=== PATIENT | male | born 1935 | race Caucasian/White ===

== ENCOUNTER 2024-03-30 17:43 | Inpatient (IN) | payer OTHER, BC ==
[~2024-03-30] VITALS: Ht 182.9 cm; Wt 69.4 kg
[2024-03-30 19:00] LABS: BASOPHILS % (AUTO) 0.1 % (0-1); EOSINOPHILS % (AUTO) 0 % (0-6); HEMATOCRIT 43.9 % (42.0-52.0); LYMPHOCYTES # (AUTO) 4.8 X10'3 (1.1-4.8); LYMPHOCYTES % (AUTO) 39.9 % (21-51); MEAN CORPUSCULAR HEMOGLOBIN 33.4 PG (27.0-31.0); MEAN CORPUSCULAR VOLUME 104.6 FL (78-98); MEAN PLATELET VOLUME 9.2 FL (7.4-10.4); MONOCYTES # (AUTO) 0.4 X10'3 (0-0.9); MONOCYTES % (AUTO) 3.6 % (2-12); NEUTROPHILS # (AUTO) 6.7 X10'3 (1.8-7.7); NEUTROPHILS % (AUTO) 56.4 % (42-75); PLATELET COUNT 133 X10'3 (140-440); RED CELL DISTRIBUTION WIDTH 15.1 % (11.5-14.5); WHITE BLOOD COUNT 11.9 X10'3 (4.5-11.0)
[2024-03-30 19:22] LABS: ALBUMIN 3.2 G/DL (3.4-5.0); ANION GAP 5 (8-16); BLOOD UREA NITROGEN 22 MG/DL (7-18); BUN/CREATININE RATIO 20.4 (10.0-20.0); CALCIUM 8.3 MG/DL (8.5-10.1); CHLORIDE 103 MMOL/L (99-107); CREATININE 1.08 MG/DL (0.60-1.10); GLUCOSE 143 MG/DL (70-104); POTASSIUM 4.6 MMOL/L (3.5-5.1); PRO BRAIN NATRIURETIC PEPTIDE 3224 PG/ML (0-450); SODIUM 139 MMOL/L (135-145); TOTAL CARBON DIOXIDE 30.6 MMOL/L (24-32); eCRCL 54 ML/MIN; eGFR 65 ML/MIN
[2024-03-30 20:32] LABS: BILIRUBIN,URINE NEGATIVE (Neg); CLARITY,URINE CLEAR (Clear); COLOR,URINE YELLOW (Yellow); GLUCOSE, URINE NEGATIVE (Neg); KETONES,URINE NEGATIVE (Neg); LEUKOCYTE ESTERASE ,URINE NEGATIVE (Neg); NITRITES, URINE NEGATIVE (Neg); OCCULT BLOOD,URINE MODERATE (Neg); PH,URINE 5.5 (4.8-8.0); PROTEIN,URINE 30 mg/dl (Neg); UROBILINOGEN,URINE 0.2 E.U/dL (0.2-1.0)
[2024-03-30 20:37] LABS: UA COLLECTION TYPE STRAIGHT CATH
[2024-03-30 20:38] LABS: BACTERIA,URINE 2+ /HPF (Neg); SQUAMOUS EPITHELIAL CELL,UR FEW /LPF (FEW)
[2024-03-30 20:39] LABS: WBC,URINE 0-4 /HPF (0-4)
[2024-03-30] MEDS ORDERED: iohexol 300mg/ml 100ml inj. ONE (21:29)
[2024-03-30 21:38] LABS: ALANINE AMINOTRANSFERASE 22 U/L (12-78); ALBUMIN/GLOBULIN RATIO 0.7 (1.1-1.5); ALKALINE PHOSPHATASE 82 IU/L (46-116); ASPARTATE AMINO TRANSFERASE 22 U/L (10-37); BILIRUBIN,DIRECT 0.3 MG/DL (0-0.3); BILIRUBIN,TOTAL 1.2 MG/DL (0.1-1.0); TOTAL PROTEIN 7.6 G/DL (6.4-8.2)
[2024-03-30 21:45] LABS: C-REACTIVE PROTEIN 4.66 MG/DL (0.0-0.5); MAGNESIUM 2.3 MG/DL (1.5-2.4)
[2024-03-30] MEDS: haloperidol lactate 5mg/ml inj IM ONE (21:47)
[2024-03-30 21:50] LABS: URINE AMPHETAMINE SCREEN NEGATIVE (Neg); URINE BARBITUATE SCREEN NEGATIVE (Neg); URINE BENZODIAZEPINES SCREEN NEGATIVE (Neg); URINE CANNABINOID SCREEN POSITIVE (Neg); URINE COCAINE SCREEN NEGATIVE (Neg); URINE METHADONE SCREEN NEGATIVE (Neg); URINE OPIATE SCREEN NEGATIVE (Neg); URINE PHENCYCLIDINE SCREEN NEGATIVE (Neg)
[2024-03-30 22:01] LABS: ETHANOL < 10 MG/DL (<10)
[2024-03-30] MEDS: normal saline 1000ml 1,000 ML IV ONE (22:15)
[2024-03-30] MEDS: methylPREDNISolone sod succ 125mg/2ml vial IV ONE (22:18)
[2024-03-30 22:21] LABS: APTT 27 SECONDS (22-32); PROTHROMBIN TIME 10.3 SECONDS (9.0-12.0)
[2024-03-30 22:25] LABS: CREATINE KINASE 171 U/L (39-308)
[2024-03-30 22:35] LABS: ABG BASE EXCESS -0.9 mmol/L (-2.0-3.0); ABG HCO3 24.3 mmol/L (21.0-28.0); ABG OXYGEN SATURATION 97.7 % (94.0-98.0); ALLEN'S TEST POSITIVE; FHHb 2.3 % (0.0-5.0); FLOW 5 L/min; FMetHb 0.1 % (0.0-1.5); FO2Hb 96.6 % (94.0-98.0); MODE NASAL CANNULA; TOTAL HEMOGLOBIN 14.6 G/dl (13.5-17.5)
[2024-03-30] MEDS: ipratropium/albuterol 3ml nebule NEB ONE (23:10)
[2024-03-30 23:16] VITALS: PULSE 101; RESP 20; O2SAT 99
[2024-03-30] MEDS: hydrALAZINE 20mg/ml inj. IV ONE (23:22)
[2024-03-30] MEDS ORDERED: ipratropium/albuterol 3ml nebule NEB PRN (23:30)
[2024-03-30] MEDS ORDERED: acetaminophen 325mg tablet PO PRN (23:30)
[2024-03-30] MEDS ORDERED: potassium Cl 40MEQ/1/2NS 520ml 520 ML IV PRN (23:30)
[2024-03-30] MEDS ORDERED: ondansetron/PF 4mg/2ml inj IV PRN (23:30)
[2024-03-30] MEDS ORDERED: mag hydrox/Alum hydrox/simeth 30ml oral suspension PO PRN (23:30)
[2024-03-30] MEDS ORDERED: potassium Cl 20 mEq SR tablet PO PRN ×2 (23:30)
[2024-03-30] MEDS ORDERED: magnesium sulf-water 4G/100mL 100 ML IV PRN (23:30)
[2024-03-30] MEDS ORDERED: magnesium Cl slow-release 64mg tablet PO PRN (23:30)
[2024-03-30] MEDS ORDERED: magnesium sulf-water 2g/50mL 50 ML IV PRN (23:30)
[2024-03-30] MEDS ORDERED: magnesium hydroxide 30ml (MOM) UD suspension PO PRN (23:30)
[2024-03-30] MEDS: azithromycin/NS 500mg/250ml 250 ML IV SCH (23:35)
[2024-03-31] VITALS (7 sets, daily range): BP systolic 105–163; BP diastolic 55–101; PULSE 83–90; RESP 16–20; TEMP 97.3–98.1; O2SAT 93–98
[2024-03-31] MEDS ORDERED: hydrALAZINE 20mg/ml inj. IV PRN
[2024-03-31] MEDS: normal saline 1000ml 1,000 ML IV SCH (00:23)
[2024-03-31] MEDS: CefTRIAXone/D5W-Rocephin 1gm 50 ML IV ONE (00:23)
[2024-03-31] MEDS: folic acid 1mg tablet PO ONE (00:24)
[2024-03-31] MEDS: haloperidol lactate 5mg/ml inj IM ONE (00:35)
[2024-03-31 02:20] LABS: BASOPHILS % (AUTO) 0.1 % (0-1); EOSINOPHILS % (AUTO) 0 % (0-6); HEMOGLOBIN 13.5 g/dl (14.0-17.9); LYMPHOCYTES # (AUTO) 4.7 X10'3 (1.1-4.8); LYMPHOCYTES % (AUTO) 37.5 % (21-51); MEAN CORPUSCULAR HEMOGLOBIN 33.8 PG (27.0-31.0); MEAN CORPUSCULAR HGB CONC 32.1 g/dL (33.0-36.5); MEAN CORPUSCULAR VOLUME 105.1 FL (78-98); MEAN PLATELET VOLUME 9.6 FL (7.4-10.4); MONOCYTES # (AUTO) 0.1 X10'3 (0-0.9); NEUTROPHILS # (AUTO) 7.7 X10'3 (1.8-7.7); NEUTROPHILS % (AUTO) 61.4 % (42-75); PLATELET COUNT 132 X10'3 (140-440); RED BLOOD COUNT 3.99 X10'6 (4.70-6.10); RED CELL DISTRIBUTION WIDTH 15.1 % (11.5-14.5); WHITE BLOOD COUNT 12.6 X10'3 (4.5-11.0)
[2024-03-31 02:38] LABS: ALANINE AMINOTRANSFERASE 20 U/L (12-78); ALBUMIN/GLOBULIN RATIO 0.7 (1.1-1.5); ALKALINE PHOSPHATASE 75 IU/L (46-116); ANION GAP 9 (8-16); ASPARTATE AMINO TRANSFERASE 29 U/L (10-37); BILIRUBIN,TOTAL 1.4 MG/DL (0.1-1.0); BLOOD UREA NITROGEN 18 MG/DL (7-18); BUN/CREATININE RATIO 16.7 (10.0-20.0); CALCIUM 8.2 MG/DL (8.5-10.1); CHLORIDE 103 MMOL/L (99-107); CREATININE 1.08 MG/DL (0.60-1.10); GLUCOSE 186 MG/DL (70-104); POTASSIUM 4.5 MMOL/L (3.5-5.1); SODIUM 139 MMOL/L (135-145); TOTAL CARBON DIOXIDE 27.4 MMOL/L (24-32); TOTAL PROTEIN 7.2 G/DL (6.4-8.2); eCRCL 54 ML/MIN; eGFR 65 ML/MIN
[2024-03-31] MEDS ORDERED: UNABLE TO OBTAIN (02:40)
[2024-03-31] MEDS: ipratropium/albuterol 3ml nebule NEB SCH (08:00)
[2024-03-31] MEDS: budesonide 0.5mg/2ml UD nebule IH SCH (08:00)
[2024-03-31] MEDS: CefTRIAXone/D5W-Rocephin 1gm 50 ML IV SCH (08:04)
[2024-03-31] MEDS: losartan 25mg tablet PO SCH (08:13)
[2024-03-31] MEDS: methylPREDNISolone sod succ 125mg/2ml vial IV SCH (08:15)
[2024-03-31] MEDS: metoprolol succinate 25mg (24-HOUR) SR. Tablet PO SCH (08:16)
[2024-03-31] MEDS: amLODIPine 5mg tablet PO SCH (08:16)
[2024-03-31] MEDS: enoxaparin 40mg/0.4ml syringe SUBCUT SCH (08:21)
[2024-03-31] MEDS: atorvastatin 20mg tablet PO SCH (08:22)
[2024-03-31] MEDS: K and/or MAG REPLACEMENT MC SCH (08:31)
[2024-04-01 01:43] LABS: BASOPHILS % (AUTO) 0.1 % (0-1); EOSINOPHILS % (AUTO) 0 % (0-6); HEMATOCRIT 34.6 % (42.0-52.0); HEMOGLOBIN 11.3 g/dl (14.0-17.9); LYMPHOCYTES # (AUTO) 4.7 X10'3 (1.1-4.8); LYMPHOCYTES % (AUTO) 37.3 % (21-51); MEAN CORPUSCULAR HEMOGLOBIN 33.7 PG (27.0-31.0); MEAN CORPUSCULAR HGB CONC 32.7 g/dL (33.0-36.5); MEAN CORPUSCULAR VOLUME 102.9 FL (78-98); MEAN PLATELET VOLUME 9.5 FL (7.4-10.4); MONOCYTES # (AUTO) 0.3 X10'3 (0-0.9); NEUTROPHILS # (AUTO) 7.7 X10'3 (1.8-7.7); NEUTROPHILS % (AUTO) 60.6 % (42-75); PLATELET COUNT 112 X10'3 (140-440); RED BLOOD COUNT 3.36 X10'6 (4.70-6.10); WHITE BLOOD COUNT 12.7 X10'3 (4.5-11.0)
[2024-04-01 01:57] LABS: ALANINE AMINOTRANSFERASE 19 U/L (12-78); ALBUMIN 2.3 G/DL (3.4-5.0); ALBUMIN/GLOBULIN RATIO 0.7 (1.1-1.5); ALKALINE PHOSPHATASE 55 IU/L (46-116); ANION GAP 9 (8-16); ASPARTATE AMINO TRANSFERASE 27 U/L (10-37); BILIRUBIN,TOTAL 0.7 MG/DL (0.1-1.0); BLOOD UREA NITROGEN 19 MG/DL (7-18); BUN/CREATININE RATIO 23.5 (10.0-20.0); CALCIUM 6.5 MG/DL (8.5-10.1); CHLORIDE 108 MMOL/L (99-107); CREATININE 0.81 MG/DL (0.60-1.10); GLUCOSE 166 MG/DL (70-104); POTASSIUM 3.8 MMOL/L (3.5-5.1); SODIUM 141 MMOL/L (135-145); TOTAL CARBON DIOXIDE 24.5 MMOL/L (24-32); TOTAL PROTEIN 5.5 G/DL (6.4-8.2); eCRCL 64 ML/MIN; eGFR 90 ML/MIN
[2024-04-01 11:30] VITALS: BP 164/91; PULSE 89; RESP 18; O2SAT 94
[2024-04-01 12:55] VITALS: PULSE 80; RESP 24; O2SAT 94
[2024-04-01 13:01] VITALS: PULSE 80; RESP 24
[2024-04-01] MEDS ORDERED: diazepam inj 5 MG/ML inj. IV PRN (15:05)
[2024-04-01] MEDS: diazepam inj 5 MG/ML inj. IM ONE (15:05)
[2024-04-01 18:00] VITALS: PULSE 87; RESP 20; TEMP 97.9; O2SAT 96
[2024-04-01 20:30] VITALS: RESP 20
[2024-04-02 03:15] VITALS: PULSE 81; RESP 14; O2SAT 96
[2024-04-02] MEDS: diazepam inj 5 MG/ML inj. IM ONE ×2 (08:55→11:28)
[2024-04-02 09:20] VITALS: PULSE 67; RESP 16; O2SAT 98
[2024-04-02] MEDS: diazepam inj 5 MG/ML inj. IM PRN (09:52)
[2024-04-02] MEDS ORDERED: diazepam inj 5 MG/ML inj. IV PRN (11:00)
[2024-04-02] MEDS: haloperidol lactate 5mg/ml inj IM ONE (15:32)
[2024-04-02 20:00] VITALS: RESP 18
[2024-04-02 22:00] VITALS: PULSE 68; RESP 26; TEMP 97.6; O2SAT 94
[2024-04-03] MEDS ORDERED: diazepam inj 5 MG/ML inj. IV PRN (09:35)
[2024-04-03] MEDS ORDERED: calcium gluconate inj. 2 GM in normal saline 100ml IV soln 100 ML IV ONE ×2 (09:45→15:30)
[2024-04-03] MEDS ORDERED: CALCIUM GLUC 1gm/50ml NACL,iso 50 ML IV SCH (09:50)
[2024-04-03] MEDS: diazepam inj 5 MG/ML inj. IM ONE (12:22)
[2024-04-03] MEDS: haloperidol lactate 5mg/ml inj IM ONE (15:34)
[2024-04-03] MEDS: CALCIUM GLUC 1gm/50ml NACL,iso 50 ML IV ONE ×2 (16:35→18:10)
[2024-04-03 16:39] VITALS: RESP 18
[2024-04-03 19:42] VITALS: BP 149/97; PULSE 99; RESP 16; TEMP 98.4; O2SAT 92
[2024-04-03 20:00] VITALS: RESP 16; O2SAT 92
[2024-04-04 05:00] VITALS: BP 147/102; PULSE 78; RESP 20; TEMP 96.9; O2SAT 96
[2024-04-04 08:30] VITALS: RESP 18; O2SAT 97
[2024-04-04] MEDS: diazepam 5mg tablet PO PRN (09:00)
[2024-04-04 10:00] VITALS: BP 151/73; PULSE 85; RESP 18; TEMP 97.1; O2SAT 95
[2024-04-04 19:58] LABS: BASOPHILS % (AUTO) 0.1 % (0-1); EOSINOPHILS % (AUTO) 0 % (0-6); HEMATOCRIT 43.1 % (42.0-52.0); HEMOGLOBIN 14.1 g/dl (14.0-17.9); LYMPHOCYTES % (AUTO) 44.7 % (21-51); MEAN CORPUSCULAR HEMOGLOBIN 33.7 PG (27.0-31.0); MEAN CORPUSCULAR HGB CONC 32.8 g/dL (33.0-36.5); MEAN CORPUSCULAR VOLUME 102.6 FL (78-98); MEAN PLATELET VOLUME 10.4 FL (7.4-10.4); MONOCYTES # (AUTO) 0.5 X10'3 (0-0.9); MONOCYTES % (AUTO) 2.7 % (2-12); NEUTROPHILS # (AUTO) 9.4 X10'3 (1.8-7.7); NEUTROPHILS % (AUTO) 52.5 % (42-75); PLATELET COUNT 119 X10'3 (140-440); RED CELL DISTRIBUTION WIDTH 14.7 % (11.5-14.5); WHITE BLOOD COUNT 17.9 X10'3 (4.5-11.0)
[2024-04-04 20:27] LABS: ALANINE AMINOTRANSFERASE 15 U/L (12-78); ALBUMIN 2.7 G/DL (3.4-5.0); ALBUMIN/GLOBULIN RATIO 0.7 (1.1-1.5); ALKALINE PHOSPHATASE 73 IU/L (46-116); ANION GAP 6 (8-16); ASPARTATE AMINO TRANSFERASE 21 U/L (10-37); BILIRUBIN,TOTAL 0.6 MG/DL (0.1-1.0); BLOOD UREA NITROGEN 30 MG/DL (7-18); BUN/CREATININE RATIO 34.9 (10.0-20.0); CALCIUM 7.8 MG/DL (8.5-10.1); CHLORIDE 103 MMOL/L (99-107); CREATININE 0.86 MG/DL (0.60-1.10); GLUCOSE 191 MG/DL (70-104); POTASSIUM 4.3 MMOL/L (3.5-5.1); SODIUM 136 MMOL/L (135-145); TOTAL CARBON DIOXIDE 27.2 MMOL/L (24-32); TOTAL PROTEIN 6.4 G/DL (6.4-8.2); eCRCL 61 ML/MIN; eGFR 84 ML/MIN
[2024-04-04 22:00] VITALS: BP 164/99; PULSE 81; RESP 20; TEMP 97.9; O2SAT 90
[2024-04-05] VITALS (7 sets, daily range): BP systolic 151–167; BP diastolic 80–98; PULSE 72–77; RESP 16–22; TEMP 96.7–97.7; O2SAT 92–95
[2024-04-05 18:50] LABS: BASOPHILS % (AUTO) 0 % (0-1); EOSINOPHILS % (AUTO) 0 % (0-6); HEMATOCRIT 44.1 % (42.0-52.0); HEMOGLOBIN 14.2 g/dl (14.0-17.9); LYMPHOCYTES # (AUTO) 8.8 X10'3 (1.1-4.8); LYMPHOCYTES % (AUTO) 44.3 % (21-51); MEAN CORPUSCULAR HEMOGLOBIN 33.2 PG (27.0-31.0); MEAN CORPUSCULAR HGB CONC 32.1 g/dL (33.0-36.5); MEAN CORPUSCULAR VOLUME 103.2 FL (78-98); MEAN PLATELET VOLUME 10.7 FL (7.4-10.4); MONOCYTES # (AUTO) 0.6 X10'3 (0-0.9); NEUTROPHILS # (AUTO) 10.4 X10'3 (1.8-7.7); NEUTROPHILS % (AUTO) 52.7 % (42-75); PLATELET COUNT 139 X10'3 (140-440); RED BLOOD COUNT 4.27 X10'6 (4.70-6.10); RED CELL DISTRIBUTION WIDTH 14.8 % (11.5-14.5); WHITE BLOOD COUNT 19.8 X10'3 (4.5-11.0)
[2024-04-05 19:07] LABS: ALANINE AMINOTRANSFERASE 17 U/L (12-78); ALBUMIN 2.9 G/DL (3.4-5.0); ALBUMIN/GLOBULIN RATIO 0.7 (1.1-1.5); ALKALINE PHOSPHATASE 75 IU/L (46-116); ANION GAP 4 (8-16); ASPARTATE AMINO TRANSFERASE 15 U/L (10-37); BILIRUBIN,TOTAL 0.4 MG/DL (0.1-1.0); BLOOD UREA NITROGEN 30 MG/DL (7-18); BUN/CREATININE RATIO 34.5 (10.0-20.0); CALCIUM 8.2 MG/DL (8.5-10.1); CHLORIDE 105 MMOL/L (99-107); CREATININE 0.87 MG/DL (0.60-1.10); GLUCOSE 193 MG/DL (70-104); POTASSIUM 4.6 MMOL/L (3.5-5.1); SODIUM 140 MMOL/L (135-145); TOTAL CARBON DIOXIDE 31.4 MMOL/L (24-32); TOTAL PROTEIN 6.8 G/DL (6.4-8.2); eCRCL 60 ML/MIN; eGFR 83 ML/MIN
[2024-04-05] MEDS ORDERED: hydrALAZINE 25 MG tablet PO PRN (21:35)
[2024-04-06 05:59] LABS: BASOPHILS % (AUTO) 0.1 % (0-1); EOSINOPHILS % (AUTO) 0 % (0-6); HEMATOCRIT 43.5 % (42.0-52.0); HEMOGLOBIN 14.2 g/dl (14.0-17.9); LYMPHOCYTES # (AUTO) 8.5 X10'3 (1.1-4.8); LYMPHOCYTES % (AUTO) 42.1 % (21-51); MEAN CORPUSCULAR HEMOGLOBIN 33.7 PG (27.0-31.0); MEAN CORPUSCULAR HGB CONC 32.7 g/dL (33.0-36.5); MEAN PLATELET VOLUME 10.5 FL (7.4-10.4); MONOCYTES # (AUTO) 0.9 X10'3 (0-0.9); MONOCYTES % (AUTO) 4.6 % (2-12); NEUTROPHILS # (AUTO) 10.7 X10'3 (1.8-7.7); NEUTROPHILS % (AUTO) 53.2 % (42-75); PLATELET COUNT 128 X10'3 (140-440); RED BLOOD COUNT 4.23 X10'6 (4.70-6.10); RED CELL DISTRIBUTION WIDTH 14.8 % (11.5-14.5); WHITE BLOOD COUNT 20.1 X10'3 (4.5-11.0)
[2024-04-06 06:00] VITALS: BP 151/74; PULSE 82; RESP 18; O2SAT 93
[2024-04-06 06:23] LABS: ALANINE AMINOTRANSFERASE 17 U/L (12-78); ALBUMIN 2.9 G/DL (3.4-5.0); ALBUMIN/GLOBULIN RATIO 0.8 (1.1-1.5); ALKALINE PHOSPHATASE 62 IU/L (46-116); ANION GAP 5 (8-16); ASPARTATE AMINO TRANSFERASE 17 U/L (10-37); BILIRUBIN,TOTAL 0.6 MG/DL (0.1-1.0); BLOOD UREA NITROGEN 29 MG/DL (7-18); BUN/CREATININE RATIO 41.4 (10.0-20.0); CALCIUM 8.1 MG/DL (8.5-10.1); CHLORIDE 105 MMOL/L (99-107); GLUCOSE 116 MG/DL (70-104); POTASSIUM 4.2 MMOL/L (3.5-5.1); SODIUM 142 MMOL/L (135-145); TOTAL CARBON DIOXIDE 32.2 MMOL/L (24-32); TOTAL PROTEIN 6.5 G/DL (6.4-8.2); eCRCL 74 ML/MIN; eGFR > 90 ML/MIN
[2024-04-06] MEDS: predniSONE 20 mg tablet PO SCH (11:14)
[2024-04-06] MEDS: levoFLOXACIN 750MG TABLET PO SCH (11:15)
[2024-04-06] MEDS: aspirin 81mg tab.chew PO ONE (14:05)
[2024-04-06 14:46] VITALS: RESP 16
[2024-04-06] MEDS: LidoCAINE 2% Topical Jelly 11mL syringe (UROJET) TOP ONE (16:20)
[2024-04-06] MEDS: CefTRIAXone 2gm/D5W 50ml BAG 50 ML IV ONE (16:20)
[2024-04-06 18:00] VITALS: BP 155/90; PULSE 71; RESP 16; TEMP 97.8; O2SAT 92
[2024-04-06] MEDS: apixaban 5mg tablet PO SCH (20:05)
[2024-04-07 06:00] VITALS: BP 184/104; RESP 23; TEMP 97.5; O2SAT 97
[2024-04-07 06:11] LABS: BASOPHILS % (AUTO) 0.1 % (0-1); EOSINOPHILS % (AUTO) 0.1 % (0-6); NEUTROPHILS % (AUTO) 36.5 % (42-75)
[2024-04-07 06:13] LABS: HEMATOCRIT 43.5 % (42.0-52.0); HEMOGLOBIN 14.3 g/dl (14.0-17.9); LYMPHOCYTES # (AUTO) 7.7 X10'3 (1.1-4.8); LYMPHOCYTES % (AUTO) 58.1 % (21-51); MEAN CORPUSCULAR HEMOGLOBIN 33.7 PG (27.0-31.0); MEAN CORPUSCULAR HGB CONC 32.8 g/dL (33.0-36.5); MEAN CORPUSCULAR VOLUME 102.7 FL (78-98); MEAN PLATELET VOLUME 10.5 FL (7.4-10.4); MONOCYTES # (AUTO) 0.7 X10'3 (0-0.9); MONOCYTES % (AUTO) 5.2 % (2-12); NEUTROPHILS # (AUTO) 4.8 X10'3 (1.8-7.7); PLATELET COUNT 118 X10'3 (140-440); RED BLOOD COUNT 4.24 X10'6 (4.70-6.10); RED CELL DISTRIBUTION WIDTH 14.4 % (11.5-14.5); WHITE BLOOD COUNT 13.2 X10'3 (4.5-11.0)
[2024-04-07 06:44] LABS: ALANINE AMINOTRANSFERASE 14 U/L (12-78); ALBUMIN 2.6 G/DL (3.4-5.0); ALBUMIN/GLOBULIN RATIO 0.8 (1.1-1.5); ALKALINE PHOSPHATASE 61 IU/L (46-116); ANION GAP 3 (8-16); ASPARTATE AMINO TRANSFERASE 18 U/L (10-37); BLOOD UREA NITROGEN 22 MG/DL (7-18); BUN/CREATININE RATIO 27.2 (10.0-20.0); CALCIUM 7.8 MG/DL (8.5-10.1); CHLORIDE 102 MMOL/L (99-107); CREATININE 0.81 MG/DL (0.60-1.10); GLUCOSE 82 MG/DL (70-104); POTASSIUM 3.7 MMOL/L (3.5-5.1); SODIUM 140 MMOL/L (135-145); TOTAL CARBON DIOXIDE 35.1 MMOL/L (24-32); eCRCL 64 ML/MIN; eGFR 90 ML/MIN
[2024-04-07] MEDS ORDERED: CefTRIAXone 2gm/D5W 50ml BAG 50 ML IV SCH (08:00)
[2024-04-07] MEDS ORDERED: azithromycin/NS 500mg/250ml 250 ML IV ONE (08:05)
[2024-04-07] MEDS: aspirin 81mg tab.chew PO SCH (09:33)
[2024-04-07 11:59] LABS: LARGE PLATELETS FEW; PLATELET ESTIMATE DECREASED; TOTAL CELLS COUNTED 100
[2024-04-07] MEDS ORDERED: albuterol 2.5 MG/3 ML nebule NEB PRN (13:45)
[2024-04-07 14:20] VITALS: BP 114/78; PULSE 91; O2SAT 92
[2024-04-07] MEDS: metoprolol succinate 25mg (24-HOUR) SR. Tablet PO ONE (14:20)
[2024-04-07] MEDS: losartan 25mg tablet PO ONE (14:20)
[2024-04-07] MEDS: amLODIPine 5mg tablet PO ONE (14:20)
[2024-04-07] MEDS: lactose-reduced food (Ensure Enlive) - 237ml bottle PO SCH (18:00)
[2024-04-07 20:00] VITALS: RESP 18
[2024-04-07] MEDS: ipratropium/albuterol 3ml nebule NEB SCH (20:02)
[2024-04-07 20:05] VITALS: PULSE 96; RESP 18; O2SAT 96
[2024-04-07 22:00] VITALS: BP 154/97; PULSE 80; RESP 20; TEMP 97.1; O2SAT 93
[2024-04-08 06:33] LABS: BASOPHILS % (AUTO) 0.1 % (0-1); EOSINOPHILS % (AUTO) 0.1 % (0-6); HEMOGLOBIN 13.3 g/dl (14.0-17.9); MONOCYTES # (AUTO) 0.8 X10'3 (0-0.9); NEUTROPHILS # (AUTO) 6.3 X10'3 (1.8-7.7)
[2024-04-08 06:34] LABS: HEMATOCRIT 40.8 % (42.0-52.0); LYMPHOCYTES # (AUTO) 9.6 X10'3 (1.1-4.8); LYMPHOCYTES % (AUTO) 57.4 % (21-51); MEAN CORPUSCULAR HEMOGLOBIN 33.4 PG (27.0-31.0); MEAN CORPUSCULAR HGB CONC 32.5 g/dL (33.0-36.5); MEAN CORPUSCULAR VOLUME 102.9 FL (78-98); MEAN PLATELET VOLUME 10.3 FL (7.4-10.4); MONOCYTES % (AUTO) 4.6 % (2-12); NEUTROPHILS % (AUTO) 37.8 % (42-75); PLATELET COUNT 123 X10'3 (140-440); RED BLOOD COUNT 3.97 X10'6 (4.70-6.10); RED CELL DISTRIBUTION WIDTH 14.4 % (11.5-14.5); WHITE BLOOD COUNT 16.7 X10'3 (4.5-11.0)
[2024-04-08 06:37] LABS: ALANINE AMINOTRANSFERASE 15 U/L (12-78); ALBUMIN 2.5 G/DL (3.4-5.0); ALBUMIN/GLOBULIN RATIO 0.7 (1.1-1.5); ALKALINE PHOSPHATASE 67 IU/L (46-116); ANION GAP 2 (8-16); ASPARTATE AMINO TRANSFERASE 14 U/L (10-37); BILIRUBIN,TOTAL 0.8 MG/DL (0.1-1.0); BLOOD UREA NITROGEN 23 MG/DL (7-18); BUN/CREATININE RATIO 37.7 (10.0-20.0); CALCIUM 7.9 MG/DL (8.5-10.1); CHLORIDE 104 MMOL/L (99-107); CREATININE 0.61 MG/DL (0.60-1.10); GLUCOSE 130 MG/DL (70-104); POTASSIUM 4.1 MMOL/L (3.5-5.1); SODIUM 140 MMOL/L (135-145); TOTAL CARBON DIOXIDE 34.4 MMOL/L (24-32); TOTAL PROTEIN 5.9 G/DL (6.4-8.2); eCRCL 85 ML/MIN; eGFR > 90 ML/MIN
[2024-04-08 06:48] VITALS: BP 121/88; PULSE 74; RESP 20; TEMP 96.8; O2SAT 96
[2024-04-08] MEDS ORDERED: amLODIPine 5mg tablet PO SCH (08:00)
[2024-04-08] MEDS ORDERED: azithromycin/NS 500mg/250ml 250 ML IV SCH (08:00)
[2024-04-08] MEDS ORDERED: losartan 25mg tablet PO SCH ×2 (08:00)
[2024-04-08] MEDS ORDERED: metoprolol succinate 25mg (24-HOUR) SR. Tablet PO SCH ×2 (08:00)
[2024-04-08] MEDS: amLODIPine 5mg tablet PO SCH (09:11)
[2024-04-08] MEDS: losartan 25mg tablet PO SCH (09:12)
[2024-04-08] MEDS: metoprolol succinate 25mg (24-HOUR) SR. Tablet PO SCH (09:12)
[2024-04-08 09:30] VITALS: BP 132/68; PULSE 89; RESP 20; TEMP 98.4; O2SAT 96
[2024-04-08] MEDS ORDERED: haloperidol 5mg tablet PO ONE (12:00)
[2024-04-08] MEDS: haloperidol 1mg tablet PO ONE (14:14)
[2024-04-08 18:00] VITALS: BP 139/85; PULSE 79; RESP 18; TEMP 97.9; O2SAT 95
[2024-04-08 20:00] VITALS: RESP 18; O2SAT 95
[2024-04-08 21:02] VITALS: PULSE 94; RESP 18; O2SAT 95
[2024-04-09] MEDS ORDERED: losartan 25mg tablet PO SCH (08:00)
[2024-04-09] MEDS ORDERED: metoprolol succinate 25mg (24-HOUR) SR. Tablet PO SCH (08:00)
[2024-04-09] MEDS ORDERED: amLODIPine 5mg tablet PO SCH (08:00)
[2024-04-09 10:50] VITALS: RESP 18; O2SAT 97
[2024-04-09 10:54] LABS: BASOPHILS % (AUTO) 0.3 % (0-1); EOSINOPHILS % (AUTO) 0.1 % (0-6); HEMATOCRIT 45.3 % (42.0-52.0); HEMOGLOBIN 14.9 g/dl (14.0-17.9); LYMPHOCYTES # (AUTO) 9.4 X10'3 (1.1-4.8); LYMPHOCYTES % (AUTO) 53.7 % (21-51); MEAN CORPUSCULAR HEMOGLOBIN 33.8 PG (27.0-31.0); MEAN CORPUSCULAR HGB CONC 32.9 g/dL (33.0-36.5); MEAN CORPUSCULAR VOLUME 102.9 FL (78-98); MEAN PLATELET VOLUME 10.4 FL (7.4-10.4); MONOCYTES # (AUTO) 0.7 X10'3 (0-0.9); MONOCYTES % (AUTO) 3.8 % (2-12); NEUTROPHILS # (AUTO) 7.4 X10'3 (1.8-7.7); NEUTROPHILS % (AUTO) 42.1 % (42-75); PLATELET COUNT 120 X10'3 (140-440); RED CELL DISTRIBUTION WIDTH 14.5 % (11.5-14.5); WHITE BLOOD COUNT 17.6 X10'3 (4.5-11.0)
[2024-04-09 11:03] LABS: ALANINE AMINOTRANSFERASE 18 U/L (12-78); ALBUMIN 2.5 G/DL (3.4-5.0); ALBUMIN/GLOBULIN RATIO 0.7 (1.1-1.5); ALKALINE PHOSPHATASE 67 IU/L (46-116); ANION GAP -2 (8-16); ASPARTATE AMINO TRANSFERASE 25 U/L (10-37); BLOOD UREA NITROGEN 26 MG/DL (7-18); BUN/CREATININE RATIO 24.1 (10.0-20.0); CALCIUM 8.7 MG/DL (8.5-10.1); CHLORIDE 104 MMOL/L (99-107); CREATININE 1.08 MG/DL (0.60-1.10); GLUCOSE 190 MG/DL (70-104); SODIUM 141 MMOL/L (135-145); TOTAL CARBON DIOXIDE 39.1 MMOL/L (24-32); TOTAL PROTEIN 6.3 G/DL (6.4-8.2); eCRCL 48 ML/MIN; eGFR 65 ML/MIN
[2024-04-09 11:31] LABS: POTASSIUM 6.7 MMOL/L (3.5-5.1)
[2024-04-09 11:39] LABS: PLATELET ESTIMATE DECREASED; TOTAL CELLS COUNTED 100
[2024-04-09 11:40] LABS: ELLIPTOCYTES FEW
[2024-04-09] MEDS: PATIROMER CALCIUM SORBITEX 8.4 GM POWD.PACK PO ONE (11:40)
[2024-04-09] MEDS: CALCIUM GLUC 1gm/50ml NACL,iso 50 ML IV SCH (11:45)
[2024-04-09] MEDS: dextrose 50%-water 50ml dispensing syringe IV ONE (11:55)
[2024-04-09] MEDS: insulin regular, human 10 units/0.1 ml syringe IV ONE (11:55)
[2024-04-09] MEDS ORDERED: morphine 10mg/0.5ml (conc. morphine) oral syringe PO PRN (14:40)
[2024-04-09 18:00] VITALS: BP 126/76; PULSE 91; RESP 24; TEMP 98.1; O2SAT 92
[2024-04-09] MEDS ORDERED: LORazepam 1 MG tablet PO PRN (18:35)
[2024-04-09 20:00] VITALS: RESP 24; O2SAT 92
[2024-04-10 06:00] VITALS: BP 92/54; PULSE 84; RESP 20; TEMP 97.7; O2SAT 94
[2024-04-10 10:00] VITALS: BP 138/71; PULSE 78; RESP 18; TEMP 97.9; O2SAT 96
[2024-04-10 13:27] VITALS: RESP 20; O2SAT 94
[2024-04-10] MEDS: ondansetron/PF 4mg/2ml inj IV PRN (17:23)
[2024-04-11] MEDS: morphine 10mg/0.5ml (conc. morphine) oral syringe PO PRN (06:11)
[2024-04-11 10:00] VITALS: BP 103/78; PULSE 87; RESP 16; TEMP 97.9; O2SAT 93
[2024-04-11 11:41] VITALS: RESP 16; O2SAT 93
[2024-04-11] MEDS: LORazepam 2 mg/ml vial IV PRN (15:43)
[2024-04-11 22:00] VITALS: BP 120/78; PULSE 91; RESP 14; TEMP 97.4; O2SAT 96
[2024-04-12 08:00] VITALS: RESP 24
[2024-04-12] MEDS: morphine 2 MG/ML inj. syringe IV PRN (08:28)
[2024-04-12 18:00] VITALS: BP 137/78; PULSE 82; RESP 18; TEMP 97.4; O2SAT 92
[2024-04-13 07:16] VITALS: BP 147/73; PULSE 75; RESP 16; TEMP 97; O2SAT 94
[2024-04-13 18:00] VITALS: BP 155/92; PULSE 72; RESP 14; TEMP 97.8; O2SAT 95
[2024-04-13] MEDS ORDERED: LORazepam 1 MG tablet PO PRN (19:05)
[2024-04-13] MEDS: scopolamine 1MG/72H patch 1 PATCH PATCH.TD.3 TD SCH (23:57)
[2024-04-14] MEDS: LORazepam 2 mg/ml vial IV PRN (01:38)
[2024-04-14 06:00] VITALS: BP 154/101; PULSE 49; RESP 14; TEMP 96; O2SAT 90
[2024-04-14 08:00] VITALS: RESP 14; O2SAT 93
[2024-04-14] MEDS: morphine 10mg/0.5ml (conc. morphine) oral syringe PO PRN (09:58)
[2024-04-14 11:00] VITALS: BP 149/96; PULSE 70; RESP 15; TEMP 96.9; O2SAT 93
[2024-04-14 18:00] VITALS: BP 138/82; PULSE 65; RESP 15; TEMP 97.3; O2SAT 93
[2024-04-14 20:00] VITALS: RESP 15; O2SAT 93
[2024-04-15 10:00] VITALS: BP 139/84; PULSE 71; RESP 17; TEMP 97.2; O2SAT 90
== END 2024-04-15 12:05 | disposition hospice, home (50) | DRG 871 ==
LOC: ER 17:44 → ED HOLD 21:57 → PCU 3S 03-31 05:14 → SUR 3N 04-03 19:40
PROVIDERS: ADMIT Internal Medicine Pulmonary Disease; ATTEND Family Medicine
PROC: BW251ZZ Computerized Tomography (CT Scan) of Chest, Abdomen and Pelvis using Low Osmolar Contrast (ICD-10-PCS; principal; 2024-03-30)
DX: A41.9 Sepsis, unspecified organism (principal); G92.8 Other toxic encephalopathy; J96.01 Acute respiratory failure with hypoxia; J15.69 Pneumonia due to other Gram-negative bacteria; J15.9 Unspecified bacterial pneumonia; J44.1 Chronic obstructive pulmonary disease with (acute) exacerbation; N39.0 Urinary tract infection, site not specified; N17.9 Acute kidney failure, unspecified; J44.0 Chronic obstructive pulmonary disease with (acute) lower respiratory infection; I16.0 Hypertensive urgency; Z20.822 Contact with and (suspected) exposure to COVID-19; Z66 Do not resuscitate; I48.91 Unspecified atrial fibrillation; E83.51 Hypocalcemia; D75.89 Other specified diseases of blood and blood-forming organs; I11.0 Hypertensive heart disease with heart failure; I50.9 Heart failure, unspecified; D64.9 Anemia, unspecified; E78.5 Hyperlipidemia, unspecified; F12.929 Cannabis use, unspecified with intoxication, unspecified; Z87.891 Personal history of nicotine dependence; Z86.73 Personal history of transient ischemic attack (TIA), and cerebral infarction without residual deficits; Z90.49 Acquired absence of other specified parts of digestive tract; Z51.5 Encounter for palliative care
CPT/HCPCS: 36415; 36600; 70450; 71045; 71260; 74177; 80048; 80053; 80076; 80305; 80320; 81001; 82330; 82550; 82803; 83605; 83735; 83880; 84100; 84145; 85007; 85018; 85025; 85610; 85730; 86140; 87040; 87081; 87502; 87503; 87811; 93005; 94640; 94760; 97116; 97161; 97530; 99285; A4314; A4615; A5200; A6212; A6213; A6250; A6590; C1758; G0378; J0360; J0456; J0610; J0696; J1630; J1650; J2060; J2270; J2405; J2919; J3360; J7030; J7512; Q9967